=== PATIENT | male | born 1980 | race African-American/Black ===

== ENCOUNTER 2016-03-07 13:01 | Emergency (ER) | payer OTHER ==
[~2016-03-07] VITALS: Ht 170.2 cm; Wt 70.3 kg
[~2016-03-07 13:01] MED LIST: ALBUTEROL0.09 MG/A1 INH; ENDOCET 325 MG-1 TA1 PO; IBU600 MG PO; MOTRIN 600 MG600 MG PO; MOTRIN800 MG PO; NORCO 325 MG-51 TAB PO; PERCOCET 325 MG1 TA2 PO; PERCOCET 5-3251 EACH PO; ULTRAM50 M1 PO; ZITHROMAX Z-PA250 M1 PO
--- NOTE | 2016-03-07 14:41 | ED GI/GU/ABDOMINAL COMPLAINT ---
History of Present Illness General Chief Complaint: Nausea, Vomiting, Diarrhea Stated Complaint: NAUSEA; VOMITING Source: patient Exam Limitations: no limitations Vital Signs & Intake/Output Vital Signs & Intake/Output Vital Signs Date Time Temp Pulse Resp B/P Pulse O2 O2 Flow FiO2 Ox Delivery Rate 03/07 1337 100.6 97 18 115/82 99 Room Air Allergies Coded Allergies: NO KNOWN ALLERGIES (03/07/16) No Known Drug Allergies (03/07/16) Triage Note: C/O NAUSEA, VOMITING AND DIARRHEA SINCE LAST PM, EPIGASTRIC PAIN WITH VOMITING. Triage Nurses Notes Reviewed? yes Onset: Gradual Duration: day(s): (1) Timing: remote history Quality/Severity: cramping Severity Numbers: 6 Location: generalized abdomen Radiation: no radiation Activities at Onset: none Prior Abdominal Problems: similar symptoms Past Sexual History: Unobtainable at this time HPI: Patient is a 35-year-old male presenting to the emergency department with chief complaint of generalized abdominal discomfort, nausea and vomiting nothing going on since 11 PM last night. Pain is crampy. Pain does not radiate. Denies taking anything for symptoms. Denies any blood in the vomit or diarrhea. He reports approximately 5-10 episodes of each. No sick contacts or recent travel. No antibiotic use. Denies any dizziness lightheadedness. No syncopal episodes. (DORCAS BOWERS,WILLA) Reconcile Medications Hyoscyamine (Levsin) 0.125 MG TABLET 1 TAB PO Q4 PRN ABDOMINAL SPASMS Ondansetron (Zofran Odt) 4 MG TAB.RAPDIS 1 TAB SL TID PRN NAUSEA Oxycodone HCl/Acetaminophen (Percocet 5-325 MG Tablet) 5 MG-325 MG TABLET 1 TAB PO Q6 PRN PAIN Tramadol HCl (Ultram) 50 MG TABLET 1 TAB PO BIDP PRN breakthrough pain (ERIN YEPEZ MD) Past History Travel History Traveled to [place] past 21 day No Medical History Any Pertinent Medical History? 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 No (WILLA JIANG) Review of Systems Review of Systems Constitutional: Reports: malaise. Comments Review of systems: See HPI, All other systems negative. Constitutional, no chills fever or weight loss HEENT: No visual changes no sore throat no congestion Cardiovascular: No chest pain ,palpitation , orthopnea or ankle swelling Skin, no jaundice no rashes Respiratory: No dyspnea cough sputum or hemoptysis GI: Positive nausea, vomiting, diarrhea : No dysuria No hematuria Muscle skeletal: no back pain, no neck pain, Neurologic: No numbness no confusion Psych: No stress anxiety or depression,. Heme/endocrine: No bruising no bleeding no polyuria or polydipsia Immunology: No splenectomy or history of AIDS (WILLA JIANG) Physical Exam Physical Exam General Appearance: well developed/nourished, no apparent distress, alert, awake , comfortable Gastrointestinal: normal bowel sounds, soft, non-tender Comments: Well-developed well-nourished person in no acute distress HEENT: Pupils equally round and reactive to light and accommodation. Nose is atraumatic. Dry oral mucosa. Neck: Supple, no lymphadenopathy, normal range of motion without pain or tenderness Back: Nontender, no CVA tenderness. Cardiovascular: Regular rate and rhythms no murmurs rubs or gallops, normal JVP Respiratory: Chest nontender. No respiratory distress.breath sounds clear to auscultation bilaterally Abdomen: Soft, nontender nondistended, no appreciable organomegaly. Normal bowel sounds. No ascites, no rebound or guarding. Negative psoas and carnallite plant operator sign. Extremity: No edema Neuro: Alert oriented x3 Skin: No appreciable rash on exposed skin, skin is warm and dry. Psych: Mood and affect is normal, memory and judgment is normal. Core Measures ACS in differential dx? No Severe Sepsis Present: No Septic Shock Present: No (WILLA JIANG) Progress Differential Diagnosis: UTI/pyelo, DEHYDRATION, ELECTROLYTE ABNORMALITY, uti, GASTROENTERITIS Plan of Care: Orders Procedure Date/time Status LIPASE 03/07 1440 Complete COMPREHENSIVE METABOLIC PANEL 03/07 1440 Complete CBC WITHOUT DIFFERENTIAL 03/07 144 Complete AMYLASE 03/07 1440 Complete Laboratory Tests 03/07/16 1517: Anion Gap 13, Estimated GFR > 60, BUN/Creatinine Ratio 12.2, Glucose 74, Calcium 9.9, Total Bilirubin 1.0, AST 25, ALT 29, Alkaline Phosphatase 79, Total Protein 7.9, Albumin 5.0, Globulin 2.9, Albumin/Globulin Ratio 1.7, Amylase 145 H, Lipase 68, CBC w Diff NO MAN DIFF REQ, RBC 5.58, MCV 86.8, MCH 28.6, RDW 14.8 H , MPV 9.0, Gran % 93.7 H, Lymphocytes % 3.0 L, Monocytes % 3.1, Eosinophils % 0.2, Basophils % 0 L, Absolute Granulocytes 13.1 H, Absolute Lymphocytes 0.4 L, Absolute Monocytes 0.4, Absolute Eosinophils 0, Absolute Basophils 0, PUBS MCHC 32.9 L Initial ED EKG: none (WILLA JIANG) Departure Departure Time of Disposition: 1623 Disposition: HOME OR SELF CARE Condition: Stable Clinical Impression Primary Impression: Gastroenteritis Referrals: PATIENT HAS NO PRIMARY CARE DR (PCP/Family) Additional Instructions: Follow-up with your primary care physician call to make an appointment. Take Zofran as prescribed nausea. Take Levsin as prescribed for abdominal discomfort. Return for worsening symptoms or concerns. Increase fluids. Departure Forms: Customer Survey D/C INS-APPENDICITIS EXCLUSION General Discharge Information Prescriptions: Current Visit Scripts Ondansetron (Zofran Odt) 1 TAB SL TID PRN NAUSEA #10 TAB Hyoscyamine (Levsin) 1 TAB PO Q4 PRN ABDOMINAL SPASMS #15 TAB (WILLA JIANG) PA/SOLDERING MACHINE OPERATOR HELPER Co-Sign Statement Statement: ED Attending supervision documentation- [] I saw and evaluated the patient. I have also reviewed all the pertinent lab results and diagnostic results. I agree with the findings and the plan of care as documented in the PA's/SOLDERING MACHINE OPERATOR HELPER's documentation. x I have reviewed the ED Record and agree with the PA's/SOLDERING MACHINE OPERATOR HELPER's documentation. [] Additions or exceptions (if any) to the PAs/SOLDERING MACHINE OPERATOR HELPER's note and plan are summarized below: [] (MARLENI SARMIENTO,ERIN)
[2016-03-07 15:26] LABS: ABSOLUTE BASOPHIL COUNT 0 /CUMM (0.0-0.2); ABSOLUTE EOSINOPHIL COUNT 0 /CUMM (0.0-0.7); ABSOLUTE GRANULOCYTE CT 13.1 /CUMM (1.4-6.5); ABSOLUTE LYMPH COUNT 0.4 /CUMM (1.2-3.4); ABSOLUTE MONOCYTE COUNT 0.4 /CUMM (0.10-0.60); BASOPHIL % 0 % (0.0-2.0); EOSINOPHIL % 0.2 % (0-5); HEMATOCRIT 48.4 % (42-52); MEAN CORPUSCULAR HGB 28.6 PG (27.0-31.0); MEAN CORPUSCULAR HGB CONC 32.9 G/DL (33.0-37.0); MEAN CORPUSCULAR VOLUME 86.8 FL (80.0-94.0); PLATELET COUNT 154 /CUMM (130-400); RBC DISTRIBUTION WIDTH 14.8 % (11.5-14.5); RED BLOOD CELL CT 5.58 /CUMM (4.70-6.10)
[2016-03-07 15:38] LABS: GRANULOCYTE % 93.7 % (42.2-75.2)
[2016-03-07] MEDS ORDERED: LEVSIN0.125 M1 PO (16:25)
[2016-03-07] MEDS ORDERED: ZOFRAN ODT4 M1 SL (16:25)
[2016-03-07 16:43] VITALS: BP 122/61
== END 2016-03-07 16:45 ==
LOC: ERH 13:01
PROVIDERS: Physician Assistant
DX: K52.9 Noninfective gastroenteritis and colitis, unspecified (principal)
CPT/HCPCS: 96374; J2405

== ENCOUNTER 2016-03-20 09:22 | Emergency (ER) | payer OTHER ==
[~2016-03-20] VITALS: Ht 170.2 cm; Wt 70.3 kg
[~2016-03-20 09:22] MED LIST changes: +LEVSIN0.125 M1 PO; +ZOFRAN ODT4 M1 SL
[2016-03-20 09:35] VITALS: BP 121/79
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
[2016-03-20] MEDS ORDERED: AUGMENTIN 500-1 EACH PO (10:00)
== END 2016-03-20 10:11 ==
LOC: ERH 09:22
DX: S51.851A Open bite of right forearm, initial encounter (principal); Y04.1XXA Assault by human bite, initial encounter
CPT/HCPCS: 90471; 90714

== ENCOUNTER 2016-05-17 21:45 | Emergency (ER) | payer OTHER ==
[~2016-05-17] VITALS: Ht 170.2 cm; Wt 70.3 kg
[~2016-05-17 21:45] MED LIST changes: +AUGMENTIN 500-1 EACH PO
[2016-05-17 21:59] VITALS: BP 128/72
--- NOTE | 2016-05-17 22:06 | ED THROAT/DENTAL COMPLAINT ---
History of Present Illness General Chief Complaint: Sore Throat, Dental Pain Stated Complaint: RIGHT SIDE UPPER DENTAL PAIN Source: patient Exam Limitations: no limitations Vital Signs & Intake/Output Vital Signs & Intake/Output Vital Signs Date Time Temp Pulse Resp B/P Pulse O2 O2 Flow FiO2 Ox Delivery Rate 05/17 2159 97.8 82 18 128/72 98 Room Air Allergies Coded Allergies: No Known Allergies (03/20/16) Reconcile Medications Augmentin (Augmentin 500-125 Tablet) 500 MG-125 MG TABLET 1 TAB PO BID HUMAN BITE Hydrocodone/Acetaminophen (Vicodin 5-300 MG Tablet) 5 MG-300 MG TABLET 1 TAB PO BID PRN PAIN Meloxicam (Mobic) 15 MG TABLET 1 TAB PO DAILY PRN pain Triage Note: RECEIVED 35 YO MALE C/O WORSENING RIGHT UPPER DENTAL PAIN X FEW WEEKS. SEEN DENTIST LAST WEEK AND NEEDS TO SEE ORAL DENTIST FOR ROOT CANAL. JUST FINISHED COURSE OF AMOXICILLIN Triage Nurses Notes Reviewed? yes Onset: Gradual Duration: getting worse Timing: recent history Severity: severe Severity Numbers: 8 HPI: Patient is a 35-year-old male who presents emergency room with a 3 week history of right upper dental tooth pain where he was evaluated last week by dentist and will be performing a root canal next week which patient just finished Augmentin prescribed by dentist however he is still complaining of pain localized to the right upper tooth. Denies any fever chills denies any fracture or mechanism injury denies any difficulty swallowing difficulty breathing. No medications administered for his symptoms. (NAZARIO JACKSON) Past History Travel History Traveled to [place] past 21 day No Medical History Any Pertinent Medical History? 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 No (NAZARIO JACKSON) Review of Systems Review of Systems Constitutional: Reports: no symptoms. EENTM: Reports: see HPI, tooth pain. Denies: mouth pain. Respiratory: Reports: no symptoms. Cardiovascular: Reports: no symptoms. GI: Reports: no symptoms. Genitourinary: Reports: no symptoms. Musculoskeletal: Reports: no symptoms. Skin: Reports: no symptoms. Neurological/Psychological: Reports: no symptoms. Hematologic/Endocrine: Reports: no symptoms. Immunologic/Allergic: Reports: no symptoms. All Other Systems: Reviewed and Negative (NAZARIO JACKSON) Physical Exam Physical Exam General Appearance: no apparent distress, alert, comfortable Mouth/Throat: normal mouth inspection, pharynx normal, dental tenderness Comments: Well-developed well-nourished person in no acute distress HEENT: Normal EENT exam, extraocular motion intact, no nystagmus. Pupils equally round and reactive to light and accommodation. Nose is atraumatic. External auditory canal and Tympanic membranes clear. Pharynx normal. No swelling or edema. Neck: Supple, no lymphadenopathy, normal range of motion without pain or tenderness Back: Nontender, no CVA tenderness. Extremity: No edema, no calf tenderness to palpation, normal and equal pulses. Neuro: Alert oriented x3, motor sensory normal, Skin: No appreciable rash on exposed skin, skin is warm and dry. Psych: Mood and affect is normal, memory and judgment is normal. Diagram Dental: 1) #4 tooth noted to be severely tender with multiple caries surrounding gingivitis no surrounding abscess no swelling no active bleeding no fracture Core Measures ACS in differential dx? No Severe Sepsis Present: No Septic Shock Present: No (NAZARIO JACKSON) Progress Differential Diagnosis: aspirated tooth, carious tooth, epiglottitis, Ludwigs angina, meningitis, odontogenic abscess, berenice-tonsillar abscess, pharyngeal for. body, stomatitis/gingivitis, strep pharyngitis, tooth fracture Plan of Care: Patient was afebrile no apparent distress no concerns of peritonsillar abscess or Sam angina. Patient was strongly advised to follow up with dentist (NAZARIO JACKSON) Departure Departure Disposition: HOME OR SELF CARE Condition: Stable Clinical Impression Primary Impression: Tooth pain Referrals: PATIENT HAS NO PRIMARY CARE DR (PCP/Family) Additional Instructions: As discussed begin the prescription of meloxicam for pain and inflammation. Begin the prescription of Vicodin for breakthrough pain relief. prescription is waiting at [facility] pharmacy. Follow up with your dentist next week. If symptoms worsen return to emergency room Departure Forms: Customer Survey General Discharge Information Prescriptions: Current Visit Scripts Meloxicam (Mobic) 1 TAB PO DAILY PRN pain #20 TAB Hydrocodone/Acetaminophen (Vicodin 5-300 MG Tablet) 1 TAB PO BID PRN PAIN #8 TAB (NAZARIO JACKSON) PA/CLAIM TRAINEE Co-Sign Statement Statement: ED Attending supervision documentation- [] I saw and evaluated the patient. I have also reviewed all the pertinent lab results and diagnostic results. I agree with the findings and the plan of care as documented in the PA's/CLAIM TRAINEE's documentation. [X] I have reviewed the ED Record and agree with the PA's/CLAIM TRAINEE's documentation. [] Additions or exceptions (if any) to the PAs/CLAIM TRAINEE's note and plan are summarized below: [] (ROCHELLE SARMIENTO,CLARISSA Ndiaye)
[2016-05-17] MEDS ORDERED: VICODIN 5-3001 EACH PO (22:24)
[2016-05-17] MEDS ORDERED: MOBIC15 M1 PO (22:24)
== END 2016-05-17 22:35 ==
LOC: ERH 21:45
DX: K08.89 Other specified disorders of teeth and supporting structures (principal)